=== PATIENT | male | born 1955 | race Two or more races ===

== ENCOUNTER 2022-08-11 05:05 | Day surgery (SDC) | payer OTHER ==
[~2022-08-11] VITALS: Ht 167.6 cm; Wt 113.4 kg
[~2022-08-11 05:05] MED LIST: FINASTERIDE5 MG PO; HYZAAR 100-251 EACH PO
== END 2022-08-11 18:00 | disposition home or self-care (01) ==
LOC: CIR.AMB 05:05
PROVIDERS: ATTEND Surgery
DX: K40.00 Bilateral inguinal hernia, with obstruction, without gangrene, not specified as recurrent (principal); Z20.822 Contact with and (suspected) exposure to COVID-19; D17.6 Benign lipomatous neoplasm of spermatic cord
CPT/HCPCS: 49650; S2900

== ENCOUNTER → 2022-08-11 15:00 | Outpatient (CLI) | payer OTHER | END | disposition home or self-care (01) | LOC: LAB 14:37 | DX: Z20.822 Contact with and (suspected) exposure to COVID-19 (principal) ==